=== PATIENT | male | born 1990 | race Caucasian/White ===

== ENCOUNTER 2022-06-09 10:56 | Emergency (ER) | payer BC, SELFPAY ==
[2022-06-09 11:13] VITALS: BP 134/73; PULSE 73; RESP 16; TEMP 36.6; O2SAT 99
--- NOTE | 2022-06-09 11:23 | ED.URI ---
HPI - URI/Sore Throat General Chief Complaint: Nausea/Vomiting/Diarrhea Stated Complaint: Nausea,Bodyaches,Diarrhea Time Seen by Provider: 06/09/22 11:24 Source: patient, RN notes reviewed and old records reviewed Mode of arrival: ambulatory Limitations: no limitations History of Present Illness HPI Narrative: 31-year-old male presents to the [facility] with complaints of nausea, body aches and diarrhea since last night. Patient states that he has taken Tylenol. No other treatment prior to arrival. Denies chest pain or abdominal pain. Denies fevers. States he feels okay now. Reports he has a child at home with similar symptoms in talking to the want ad clerk Related Data Allergies Allergy/AdvReac Type Severity Reaction Status Date / Time No Known Allergies Allergy Verified 06/09/22 11:02 Review of Systems Review of Systems: All systems reviewed & are unremarkable except as noted in HPI and below Constitutional: Constitutional: Reports as per HPI, Denies chills and Denies fever(s) Eyes: Eyes: Reports no additional eye complaints ENT: Reports system reviewed and no additional complaints, except as documented Cardiovascular: Cardiovascular: Reports no additional cardiovascular complaints Respiratory: Respiratory: Reports no additional respiratory complaints Gastrointestinal: Gastrointestinal: Reports as per HPI, Denies abdominal pain, Reports diarrhea, Reports nausea and Denies vomiting Musculoskeletal: Musculoskeletal: Reports no additional musculoskeletal complaints Integumentary/Breasts: Skin/Breast: Reports system reviewed and no additional complaints, except as docu Neurologic: Reports system reviewed and no additional complaints, except as documented Psychiatric: Psychiatric: Reports no additional psychiatric complaints Allergic/Immunologic: Allergic/Immunologic: Reports no additional allergic/immunologic complaints PMFSH Social History Social History Smoking status: Never smoker Alcohol intake: current Comments At the time of my signature, I reviewed and agree with the nursing past medical, surgical, social, and family history. There is no relevant family history pertinent to the patient complaint. Exam Const: General: healthy appearing, no acute distress, alert and well nourished Nutritional Appearance: well nourished Orientation/consciousness: patient oriented x3 Limitations: no limitations HENMT: Head: normal to inspection Ears: external ears normal, TM's normal bilaterally and EAC's normal Face/Nose/Sinus: Normal external nose present Face and sinus: normal facial exam and sinuses nontender Mouth: Yes Normal oral and palatal mucosa present, Yes lip normal and Yes moist mucous membranes Throat: posterior oropharynx normal and uvula midline Eyes: General: appearance normal, both eyes and all related structures Conjunctivae: conjunctivae normal Pupils: Equal, round and reactive pupils present Neck: Neck: normal visual inspection, no lymphadenopathy and no meningeal signs Chest: Chest palpation & inspection: normal inspection of the chest Resp: Effort & Inspection: normal respiratory effort and no use of accessory muscles Auscultation: clear to auscultation bilaterally, no crackles, no rales, no rhonchi and no wheezes Cardio: Rate: regular rate Rhythm: regular rhythm Skin: General skin exam: normal color Rashes: no rashes Wounds: no wounds Neuro: General: patient oriented x3, moves all extremities, no meningeal signs and no focal motor deficits Cranial nerves: Yes Equal, round and reactive pupils present Speech: normal speech Gait exam (Neuro): Normal gait present Extrem: General: normal to inspection, full ROM and capillary refill normal Psych: Appearance: grossly normal and well kempt Mental Status: mental status grossly normal Affect: normal affect Attitude: cooperative Thought content: Yes Normal thought content present
== END 2022-06-09 12:03 | disposition home or self-care (01) ==
PROVIDERS: Emergency Provider Nurse Practitioner
DX: B34.9 Viral infection, unspecified (principal); Z20.822 Contact with and (suspected) exposure to COVID-19
CPT/HCPCS: 87426; 87804; 99213; C9803; G0463

== ENCOUNTER 2022-10-30 19:02 | Emergency (ER) | payer SELFPAY ==
--- NOTE | 2022-10-30 19:04 | ED.SKABFB ---
HPI - Skin/Abscess/Foreign Bdy General Chief complaint: Skin/Abscess/Foreign Body Stated complaint: boil on buttocks Time Seen by Provider: 10/30/22 19:24 Source: patient and RN notes reviewed Mode of arrival: ambulatory Limitations: dementia History of Present Illness HPI narrative: 32-year-old male presents with concern for a possible boil on his buttock. He reports history of boils on his buttock. He reports an area of redness, tenderness on his left buttock. Denies malaise, chills, fever, sweats, discharge. Reports he put prid on it. complaint: abscess/boil Related Data Allergies Allergy/AdvReac Type Severity Reaction Status Date / Time No Known Allergies Allergy Verified 10/30/22 19:20 Review of Systems Review of Systems: CONSTITUTIONAL: Denies malaise, chills, sweats, or fever. CARDIOVASCULAR: Denies chest pain, palpitations, or edema. RESPIRATORY: Denies cough or dyspnea. GASTROINTESTINAL: Denies nausea, vomiting SKIN: Reports redness, swelling tenderness on the left buttock. Denies purulent drainage, vesicles, bullae, numbness, pain beyond proportion MUSCULOSKELETAL: Denies joint pain or myalgia. NEUROLOGIC: Denies headache. All systems reviewed & are unremarkable except as noted in HPI and below PMFSH Social History Social History Smoking status: Never smoker Alcohol intake: current Comments At time of signature, agree with nursing past medical, surgical, social and family history. There is no relevant family history pertinent to the presenting complaint Exam Narrative: GENERAL: Well-appearing, well-nourished, and in no acute distress. HEAD: Normocephalic, atraumatic. EYES: PERRLA, conjunctivae clear ENT: Mucous membranes moist. NECK: Supple. No lymphadenopathy CHEST: Clear to auscultation. No respiratory distress. HEART: Regular rate and rhythm. SKIN: Warm, dry. 9 cm x 7 cm area of erythema, induration, tenderness, warmth with sharp margins noted to left buttock with 2 cm slightly raised area in the center without scabbing or purulent drainage. No vesicles, bullae, necrosis, ecchymosis, crepitus noted. NEURO: Alert and oriented x3. PSYCH: Normal mood and affect Course Course Emergency Course: At this time I do not suspect any need for incision and drainage, the areas mostly cellulitic, the very small area that is raised is not fluctuant. Patient is aware of diagnosis, understands and agrees to treatment plan. Anticipatory guidance given. Patient agrees to follow-up as directed and is aware of reasons to seek care at the emergency department. Portions of this record may have been created with voice recognition software Level of Care: Express Care Visit Vital Signs Vital signs: Reviewed. MDM - Skin/Abscess/Foreign Bdy MDM Narrative Medical decision making narrative: Does not appear at this time to be erythema multiforme, bullous, SJS, TEN; no evidence at this time to suggest RMSF, NSTI, endocarditis or Lyme disease; patient looks well, nontoxic and is tolerating oral intake; no neurologic signs or symptoms; no headache, photophobia or neck pain; afebrile. Patient does not have history of of penetrating trauma, laceration, blunt trauma, recent surgery, immunosuppression, malignancy, obesity, alcoholism, corticosteroid use. Discussed the importance of follow-up, patient agrees; question, cellulitis versus necrotizing soft tissue infection versus abscess. Critical Care Time Critical Care Time Critical Care Time: No Discharge Plan Discharge Clinical Impression: Cellulitis Patient Disposition: Home, Self-Care Condition: Stable Instructions: Antibiotic Form, Cellulitis (ED) Additional Instructions: Please follow up with your Primary Care Doctor within 48-72 hours - call for an appointment. Rest and elevate affected area; apply moist heat 3-4 times daily for 10-15 minutes. Take Motrin 600mg every 8 hours with food for pain
[2022-10-30 19:11] VITALS: BP 149/80; PULSE 103; RESP 16; TEMP 37.2; O2SAT 98
== END 2022-10-30 19:39 | disposition home or self-care (01) ==
PROVIDERS: Emergency Provider Nurse Practitioner
DX: L03.317 Cellulitis of buttock (principal)
CPT/HCPCS: 99213; G0463

== ENCOUNTER 2023-11-09 15:50 | Emergency (ER) | payer BC, OTHER, SELFPAY ==
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
[2023-11-09 15:51] VITALS: BP 164/77; PULSE 65; RESP 20; TEMP 36; O2SAT 100
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
== END 2023-11-09 18:10 | disposition home or self-care (01) ==
PROVIDERS: Emergency Provider Physician Assistant
DX: S09.90XA Unspecified injury of head, initial encounter (principal); S16.1XXA Strain of muscle, fascia and tendon at neck level, initial encounter; V89.2XXA Person injured in unspecified motor-vehicle accident, traffic, initial encounter
CPT/HCPCS: 70450; 70486; 71046; 71100; 72125; 99284

== ENCOUNTER 2024-03-28 12:26 | Emergency (ER) | payer BC, SELFPAY ==
[2024-03-28 12:38] VITALS: BP 126/73; PULSE 81; RESP 18; TEMP 36.7; O2SAT 99
--- NOTE | 2024-03-28 12:54 | ED.SKABFB ---
HPI - Skin/Abscess/Foreign Bdy General Chief complaint: Skin/Abscess/Foreign Body Stated complaint: Bump On Buttucks Time Seen by Provider: 03/28/24 12:50 Source: patient, RN notes reviewed and old records reviewed Mode of arrival: ambulatory Limitations: no limitations History of Present Illness HPI narrative: Patient presents with complaints of abscess to left lower buttock. He reports that he has had this problem once before in the past. He took antibiotics, it was resolved. He states the latest episode began about 2 days ago. He reports active purulent drainage from the site. He denies any fever, chills, sweats. He voices no other concerns or complaints at this time. He has not been taking anything for his symptoms. Related Data Allergies Allergy/AdvReac Type Severity Reaction Status Date / Time No Known Allergies Allergy Verified 03/28/24 12:27 Review of Systems Review of Systems: All systems reviewed & are unremarkable except as noted in HPI and below Constitutional: Constitutional: Reports no additional constitutional complaints ENT: Reports system reviewed and no additional complaints, except as documented Cardiovascular: Cardiovascular: Reports no additional cardiovascular complaints Respiratory: Respiratory: Reports no additional respiratory complaints Gastrointestinal: Gastrointestinal: Reports no additional gastrointestinal complaints Integumentary/Breasts: Skin/Breast: Reports system reviewed and no additional complaints, except as docu, Reports as per HPI and Reports furuncle PMFSH Social History Social History Smoking status: Never smoker Alcohol intake: current Comments At the time of my signature, I reviewed and agree with the nursing past medical, surgical, social, and family history. There is no relevant family history pertinent to the patient complaint. Exam Const: General: cooperative, no acute distress, alert and awake Orientation/consciousness: oriented to person, oriented to place and oriented to time HENMT: Head: normal to inspection Resp: Effort & Inspection: normal respiratory effort and able to speak in complete sentences Auscultation: clear to auscultation bilaterally, no crackles, no rales, no rhonchi and no wheezes Cardio: Palpation: normal PMI Rate: regular rate Rhythm: regular rhythm Heart sounds: S1 normal heart sound present and S2 normal heart sound present Skin: General skin exam: induration (2 cm, surrounding abscess) and other (1 cm diameter abscess with active drainage to left lower buttock) Neuro: General: oriented to person, oriented to place and oriented to time Cranial nerves: Yes CN's II-XII intact bilaterally Psych: Appearance: grossly normal Thought process: Normal thought process present Insight: Good insight present (Psych) Judgement: Good judgement present (Psych) Course Course Level of Care: Express Care Visit Vital Signs Vital signs: Vital Signs Temperature 98.0 F 03/28/24 12:38 Pulse Rate 81 03/28/24 12:38 Respiratory Rate 18 03/28/24 12:38 Blood Pressure 126/73 03/28/24 12:38 Pulse Oximetry 99 03/28/24 12:38 Oxygen Delivery Room Air 03/28/24 12:38 Temperature 98.0 F 03/28/24 12:38 Pulse Rate 81 03/28/24 12:38 Respiratory Rate 18 03/28/24 12:38 Blood Pressure 126/73 03/28/24 12:38 Pulse Oximetry 99 03/28/24 12:38 Oxygen Delivery Room Air 03/28/24 12:38 Reviewed MDM - Skin/Abscess/Foreign Bdy MDM Narrative Medical decision making narrative: Patient with recurrent abscess to left lower buttock. Active drainage today, no need for I& D. Prescribed Bactrim DS and mupirocin. Patient strongly encouraged follow-up with primary care provider. Emergency department for new or worse symptoms. He is nontoxic appearing, stable for home treatment. Discharge instructions reviewed with patient, as well as provided in writing per nursing sta
== END 2024-03-28 13:05 | disposition home or self-care (01) ==
PROVIDERS: Emergency Provider Nurse Practitioner Family
DX: L02.31 Cutaneous abscess of buttock (principal)
CPT/HCPCS: 99213; G0463

== ENCOUNTER 2024-06-05 00:36 | Day surgery (SDC) | payer BC, SELFPAY ==
[2024-05-30 10:09] VITALS: BMI 28.0
--- NOTE | 2024-05-30 10:14 | PC.NURSE ---
Addendum entered by Joseluis Glover RN 05/30/24 10:22: Correction, patient told nothing to eat or drink after midnight. Original Note: Report to the Outpatient Waiting Room, entrance under the green pavilion located off [facility], at time _0700_ on date _[id number]_. Planned Procedure Time: _0900_.? Time changes happen often and if your time is changed the preop area will call you the afternoon before. - You and your visitor will be asked to self-screen and do not enter if you have any COVID symptoms. Please call surgeon if you need to reschedule. - A mask is optional within the hospital at this time. Patients may have clear liquids (water, carbonated beverages, clear teas, apple juice) until 3 hours prior to surgery with a maximum of 20 ounces. - No food from midnight until time of surgery and no smoking Take only the following medications with a SIP of water on the morning of surgery: __None DO NOT STOP ANY OF YOUR OTHER PRESCRIPTION MEDICATIONS PRIOR TO SURGERY EXCEPT THE FOLLOWING Medications to discontinue per physician ___None Date to take last dose Please no make-up, nail gambian, hairspray, perfume, deodorant, or body powder the day of surgery.? No jewelry (including any body piercings) or valuables the day of surgery, leave them at home.? Please take a shower or bath the night before, or the morning of, surgery with an antibacterial soap.? Wear comfortable, loose fitting clothing.? - Jewelry must be removed prior to entering the operating room.? Rings and piercings that are not removed may be cut off. - The hospital will not accept responsibility for valuables.? - Please leave all valuables, including medications, at home the day of surgery. If you are going home after surgery, a licensed route sales delivery driver must drive you home.? - NO public transportation without another adult if you receive anesthesia. - We recommend that an adult stay with you for 24 hours following discharge. - We also recommend that you do not drive, make important decision, drink alcoholic beverages, or take any drugs that were not prescribed by your health care provider for at least 24 hours after your discharge time. Follow any additional instructions given to you from your surgeon. Telephone instructions given to __Don__and asked if any additional questions and then verbalized understanding. Patient advised to call surgeon office or pre surgery nurse liaison [phone] if any additional questions.
[2024-06-05] VITALS (7 sets, daily range): BP systolic 99–123; BP diastolic 49–75; PULSE 59–89; RESP 12–20; TEMP 36.4–36.5; O2SAT 98–99
[2024-06-05] MEDS: ACETAMINOPHEN 500 MG TABLET 1000 MG PO (07:30)
[2024-06-05] MEDS: LACTATED RINGERS 1,000 ML 30 ML IV CONT (07:34)
[2024-06-05] MEDS: KETOROLAC 15 MG/ML VIAL (*BKC) IV PUSH (07:35)
--- NOTE | 2024-06-05 08:35 | P.PNAN_ITS ---
Anes - Initial Pre Proc Eval Procedure: Operation Date: 06/05/24 09:00 Proposed Procedures p Anorectal Examination Under Anesthesia, Possible Anal Fistulectomy Versus Anal Fistulotomy - Nawaf Mondragon MD Date/Time: 06/05/24 08:35 Surgeon: Nawaf Mondragon MD Pre Op Diagnosis: Anal Fissula Patient Data Age: 33 Gender: M Height: 1.78 m Weight: 90.7 kg Last Vital Signs Temp 97.7 F 06/05/24 07:19 Pulse 75 06/05/24 07:19 Resp 18 06/05/24 07:19 BP 121/71 06/05/24 07:19 Pulse Ox 98 06/05/24 07:19 O2 Del Method Room Air 06/05/24 07:19 Allergies Allergy/AdvReac Type Severity Reaction Status Date / Time No Known Allergies Allergy Verified 06/05/24 07:12 Home Medications Medication Instructions Recorded Confirmed Type No Home Medications 05/23/24 06/05/24 History Patient hx anesthesia problems: none Family hx anesthesia problems: none Results Review: All pre-operative results and documents have been reviewed as part of the pre- operative evaluation. [facility] Surgical History Surgical History History of knee surgery Social History Social History Smoking status: Never smoker Alcohol intake: current Do You Feel Safe in your Home?: Yes Lack of Transportation: No Lack of Food: Never True Current Housing: I Have Housing Concerned About Future Housing: No Difficulty Paying Gas/Electric Bills: No Difficulty Paying for Meds: No Currently Unemployed: No Education: High School Diploma/GED Difficulty w/ Childcare or Family Care: No Living arrangements: with family Spiritual care concerns: No Anes - Eval Final PreProcedure Day of Procedure 06/05/24 08:35 Patient weight: overweight Heart: regular rate and rhythm Lungs: clear to auscultation Airway: Mallampati scale class II Neurological: alert and oriented Last oral intake: >/= 8 hours ASA classification: II Emergent: no Anesthetic plan: proceed Anesthesia type and monitoring: general ETT and standard monitoring Results Review: All pre-operative results and documents have been reviewed as part of the pre-o perative evaluation. Pt is an exsmoker, quit approx 2013. Informed Consent: The patient's anesthetic plan and its attendant risks and benefits were dis cussed with the patient/family/POA. Questions were solicited and answers provided to the satisfaction of the patient/family/POA.
--- NOTE | 2024-06-05 09:03 | WPDHPUPDATE1 ---
History and Physical Update Update Date/Time: 06/05/24 09:03 History and Physical has been reviewed, including an updated exam of the patient. There are NO changes in the patient's condition. Risks, benefits, and alternatives have been discussed and questions answered. Patient agrees to proceed with procedure.
[2024-06-05] MEDS: ceFAZolin 2 GM/D5W 50 ML 2 GM/50 ML BAG IVPB (09:10)
[2024-06-05] MEDS: LIDO 1%/EPINEPHRINE 1:100,000 50 ML VIAL 30 ML INFILTRATE (09:45)
--- NOTE | 2024-06-05 10:20 | P.OP_ITS ---
Procedure Note - Detailed Date of Procedure 06/05/24 Pre-op Diagnosis Anal Fissula Post-op Diagnosis Same (A suprasphincteric anal fistula) Procedure Performed Anal rectal evaluation under anesthesia and placement of draining seton. Surgeon Nawaf Mondragon MD Anesthesia General Indications Patient is a 33-year-old white male has had a area draining about 3cm away from the anal verge at the 2 o'clock position the patient in lithotomy. In the office on examination this was thought to be consistent with an anal fistula. He is being brought to the operating now for an anorectal EUA and possible fistulectomy. 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 It drained to the anterior midline proximal to the dentate line in the distal rectal/proximal anal canal. The tract appeared to be suprasphincteric in location. Description of Procedure After informed consent was obtained patient brought to the operating room was p laced in the supine position on operating table and then general LMA anesthesia was administered. The patient was then placed in high Y[place]ofin stirrups exposing the perineum and perianal region. The area was then prepped and draped usual sterile fashion. A time-out was then performed correctly identifying the patient as well as procedure to be performed. He was given some perioperative IV antibiotics. The external opening to the anal fistula was at approximately the 2 o'clock position on the left anterior side with the patient lithotomy. I placed an anal speculum into the anal canal after a dilated the anal sphincter muscles exposing the anal canal just opposite of the external opening. According to Goodsall's rule I expected the internal opening to the anal fistula to be near the anterior midline at 12:00 p[address] I was able to place a probe through the external opening and it tracked to the anterior midline above the internal external sphincter muscles. 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 I then dilated the internal opening by placing a long tonsil clamp through the tract. A red silastic vessel loop was then placed through the tract for a draining seton. The seton was then sutured in loop in the distal portion of the vessel loop was cut and discarded. The seton was sutured with a 0 silk suture. I then irrigated out the anal canal sterile s aiyana solution hemostasis was good. Small amount of bleeding at the external opening to the fistula was treated electrocautery to achieve hemostasis. Area was then cleaned and then sterile dressing was applied. The patient tolerated the procedure well no complications. All sponges, needles, and instrument counts were correct at the end procedure. EBL was _10__cc. The patient was awakened and taken to recovery in stable and satisfactory condition. Implants Red silastic vessel loop placed in the suprasphincteric fistula tract for a draining seton. Estimated Blood Loss 10 Drains Yes (Silastic vessel loop placed as a draining seton) Packing No Pathology None sent Complications No immediate complications Condition Stable Disposition PACU [facility] Billing Surgery - Charge Forward: Surgery Billing
[2024-06-05] MEDS: ONDANSETRON INJ 4 MG/2 ML VIAL IV PUSH (10:41)
== END 2024-06-05 11:30 | disposition home or self-care (01) ==
PROVIDERS: Visit Provider Surgery
PROC: (CPT 46020; principal; 2024-06-05 09:00)
DX: K60.1 Chronic anal fissure (principal); Z98.890 Other specified postprocedural states
CPT/HCPCS: 46020; A9270; J0690; J1100; J1885; J2003; J2004; J2250; J2405; J2704; J3010; J7120